=== PATIENT | female | born 1990 | race Caucasian/White ===

== ENCOUNTER 2017-02-15 18:37 | Emergency (ER) | payer MEDICAID ==
[2017-02-15 22:27] VITALS: BP 122/73
== END 2017-02-15 22:27 | disposition home or self-care (01) ==
LOC: ED 18:37
DX: Z20.1 Contact with and (suspected) exposure to tuberculosis (principal); J45.909 Unspecified asthma, uncomplicated
CPT/HCPCS: Q0092